=== PATIENT | male | born 1930 | race Caucasian/White ===

== ENCOUNTER 2018-02-28 07:55 | Day surgery (SDC) | payer MEDICARE ==
[~2018-02-28] VITALS: Ht 177.8 cm; Wt 89.8 kg
[~2018-02-28 07:55] MED LIST: ASPIRIN EC325 MG PO; ATENOLOL25 MG PO; CLONAZEPAM0.5 MG PO; DURAGESIC1 EACH TD; FISH OIL500 MG PO; FUROSEMIDE20 MG PO; HYDROXYZINE PAM25 MG PO; KLOR-CON M2020 MEQ PO; LISINOPRIL10 MG PO; LOVASTATIN20 MG PO; NORCO 5-325 TA1 EACH PO; OXYCODONE HCL10 MG PO; OXYCODONE HCL5 MG PO; OXYCODONE-ACET1 EAC3 PO; PREDNISONE50 MG PO; WARFARIN SODIUM2 MG PO; XARELTO10 MG PO; ZOFRAN ODT4 MG SL
[2018-02-28] MEDS ORDERED: POTASSIUM CHLO10 MEQ PO (08:18)
--- NOTE | 2018-02-28 09:36 | NUR ---
02/28/18 0936 Elsa Cummins 0928- PT HAD GENERAL ANESTHESIA. PT ARRIVES TO PACU FROM OR ON 8 L VIA MASK WITH SATS 100%. RESP EVEN AND UNLABORED. PT OPENS EYES AND NODS HEAD TO VERBAL STIMULUS. PT FOLLOWS COMMANDS AND DENIES PAIN/NAUSEA. 0935- PT SITTING UP IN BED OPENING EYES AND ASKING QUESTIONS. PT DENIES PAIN/NAUSEA. RESP EVEN AND UNLABORED. PT ON 8 L VIA MASK WITH SATS 100%.
--- NOTE | 2018-02-28 10:16 | NUR ---
1005: PATIENT BACK IN DAY SURGERY ROOM FROM PACU. DENIES PAIN. DENIES NAUSEA. TOLERATING WATER. GIVEN JELLO TO EAT. IV SITE WNL. SCDs ON. MOUSTACHE DRESSING IN PLACE IS CLEAN, DRY, AND INTACT. NASAL PACKING IN PLACE. CALL LIGHT WITHIN REACH.
[2018-02-28] MEDS ORDERED: KEFLEX500 MG PO (11:06)
[2018-02-28] MEDS ORDERED: NORCO 5-325 TA1 EACH PO (11:06)
--- NOTE | 2018-02-28 11:41 | NUR ---
1110: PATIENT TOLERATED JELLO AND WATER. PATIENT ASSISTED OOB, TO WALK AROUND ROOM, AND GET DRESSED. GAIT STEADY TO BATHROOM AND BACK TO ROOM. VS CHECKED. IV DC'D WNL. TIP INTACT. DRESSING APPLIED. 1125: DISCHARGE INSTRUCTIONS GIVEN TO PATIENT AND FAMILY. PATIENT DISCHARGED TO HOME WITH SON AND FRIEND VIA WHEELCHAIR.
--- NOTE | 2018-02-28 15:54 | OR ---
[facility] [address], [place] [address] Signed DATE OF OPERATION: 02/28/2018 SURGEON: Alli Hua MD PREOPERATIVE DIAGNOSIS: Nasal septal deformity with obstruction. POSTOPERATIVE DIAGNOSIS: Nasal septal deformity with obstruction. PROCEDURE: Septoplasty. ANESTHESIA: General LMA. ANESTHESIOLOGIST: Madelyn Kiran CRNA. PREOPERATIVE HISTORY: Mr. Reilly is an 87-year-old man with a long history of nasal obstruction. He had nasal trauma, probable fracture as a young man and this was apparently never corrected. He has a significant septal deviation with near complete obstruction on the left side, mostly on the caudal edge of the septum. He is taken to the operating for the above-mentioned procedures. OPERATIVE PROCEDURE AND FINDINGS: After informed consent, the patient was taken to the operating room, placed in the supine position where general LMA anesthesia was induced. The patient and procedure were verified. The patient received preoperative intravenous Ancef and intranasal oxymetazoline. Headlight speculum exam of the nasal cavity showed the right side to be open clear. Left side had a significant septal deformity with the caudal portion of the septum deviated off into the nasal passage. Intranasally posterior to this caudal deflection, there was no deformity. The nasal passage was patent. The mucosa overlying the deviated septal cartilage was injected with 1% lidocaine with epi. Incision was made along the caudal edge of the septum deflected portion and combination of blunt and sharp dissection was used to expose the deviated cartilage. This was removed with the [place]. The airway was improved, brought back to normal in this manner. Minimal bleeding stopped afterwards. The incision was closed with 4-0 interrupted chromic. A small piece of trimmed Merocel was placed on the left side, packing coated with Electronically Signed By: ALLI HUA MD 02/28/18 1554 PATIENT NAME: CHEN REILLY OPERATIVE REPORT DATE OF : [birth year] REPORT #: [id number] PHYSICIAN: ALLI HUA MD PCP: MADHAVI VIRAMONTES MD REPORT IS CONFIDENTIAL AND NOT TO BE RELEASED WITHOUT AUTHORIZATION [facility] [address] [place], [place] [address] Signed Neosporin ointment and hemostasis was verified. The pharynx was suctioned clear of blood secretions. The patient was then awakened, extubated, transported to the recovery room in good condition. COMPLICATIONS: None. BLOOD LOSS: Minimal. SPECIMEN: None. PACKING: One piece of Merocel left nostril. DRAINS: None. Alli Hua MD GC/MODL /[id number] Copies: ~ Electronically Signed By: ALLI HUA MD 02/28/18 1554 PATIENT NAME: CHEN REILLY OPERATIVE REPORT DATE OF : [birth year] REPORT #: [id number] PHYSICIAN: ALLI HUA MD PCP: MADHAVI VIRAMONTES MD REPORT IS CONFIDENTIAL AND NOT TO BE RELEASED WITHOUT AUTHORIZATION
== END 2018-02-28 11:25 | disposition home or self-care (01) ==
LOC: OPS 07:55 → DS 07:55 → OPS 09:30 → DS 09:30 → OPS 10:00
PROVIDERS: Otolaryngology
PROC: 09SM0ZZ Reposition Nasal Septum, Open Approach (ICD-10-PCS; principal; 2018-02-28 10:00)
DX: J34.2 Deviated nasal septum (principal); J34.89 Other specified disorders of nose and nasal sinuses; E78.00 Pure hypercholesterolemia, unspecified; H91.90 Unspecified hearing loss, unspecified ear; I10 Essential (primary) hypertension; Z79.899 Other long term (current) drug therapy; Z95.1 Presence of aortocoronary bypass graft
CPT/HCPCS: 00160; J0690; J2250; J2405; J2704; J3010; J7120